=== PATIENT | female | born 1970 | race Caucasian/White ===

== ENCOUNTER 2016-07-22 17:22 | Emergency (ER) | payer MEDICAID ==
[2016-07-22] MEDS ORDERED: LIDOCAINE 2% VISC 15 ML UDC ONE (20:44)
[2016-07-22] MEDS ORDERED: ASPIRIN 81 MG CHEW TAB ONE (20:44)
[2016-07-22] MEDS ORDERED: ALU/MAG/SIM 30 ML UDC ONE (20:44)
[2016-07-22] MEDS ORDERED: DICYCLOMINE 10 MG CAP ONE (21:26)
== END 2016-07-22 22:01 | disposition home or self-care (01) ==
LOC: ER 17:22
CPT/HCPCS: 36415; 71010; 80053; 82550; 83690; 83735; 84484; 85025; 85610; 85730; 86677; 93005